=== PATIENT | male | born 1975 | race Caucasian/White ===

== ENCOUNTER 2018-04-03 09:41 | Emergency (ER) | payer SELFPAY ==
[~2018-04-03] VITALS: Ht 160 cm; Wt 53.3 kg
[2018-04-03 09:44] VITALS: Ht 160 cm; Wt 53.3 kg
--- NOTE | 2018-04-03 10:42 | DIAGNOSTIC IMAGING REPORT ---
AP PELVIS ONE VIEW, LEFT HIP 2 VIEWS HISTORY: Left hip pain COMPARISON: None. FINDINGS: There is no fracture or dislocation. Soft tissues are unremarkable. Cartilage spaces are maintained for age. IMPRESSION: No significant abnormality within the pelvis or hips. Electronically signed by: David Pizano M.D. 04/03/2018 10:40 AM Dictated Date/Time: 04/03/2018 10:39 AM
[2018-04-03] MEDS ORDERED: HYDR-5688 PO (11:05)
[2018-04-03 11:14] VITALS: BP 119/88; PULSE 98; TEMP 36.7; O2SAT 99
--- NOTE | 2018-04-03 17:06 | EMERGENCY ROOM VISIT NOTE ---
History First contact with patient: 09:53 Chief Complaint: HIP PAIN Stated Complaint: LEFT HIP PAIN History of Present Illness The patient is a 42 year old white male who presents to the Emergency Room with complaints of left hip pain that developed . He denies any specific injury or trauma. 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 He was going up and down a ladder frequently. He awoke morning with left hip pain. Pain is persisted. He points to the proximal hip flexor tendon and his buttock as the 2 areas of discomfort. Pain is worse when sitting in certain positions and when standing. He does have some difficulty with walking. No numbness or tingling. It does not radiate. No prior history of similar discomfort. No fever or chills. No loss of bowel or bladder control. No knee pain. No treatment yet. No other complaints. Review of Systems REVIEW OF SYSTEM: HEENT: No dizziness, visual problems, hearing loss, or tinnitus. There is no difficulty swallowing and no oral lesions are present. PULMONARY: No cough, shortness of breath, sputum production or hemoptysis. CARDIOVASCULAR: No chest pain, palpitations, shortness of breath or peripheral edema. GASTROINTESTINAL: No diarrhea, constipation, nausea, vomiting, or abdominal pain. GENITOURINARY: No dysuria, frequency, urgency or nocturia. NEUROLOGIC: No weakness, muscle tenderness, epilepsy or history of neurological problems. MUSCULOSKELETAL: No history of joint tenderness/swelling. No history of arthritis or arthralgias. SKIN: No rashes or lesions. PSYCHIATRIC: No history of depression or mental illness. ENDOCRINE: No history of diabetes, thyroid disorders, or abnormal hair growth. Past Medical/Surgical History Previous surgeries: None. Medical history: Unremarkable Family History Significant for liver disease and osteoarthritis. Parents are . Social History Smoking Status: Current Every Day Smoker Alcohol Use: none Drug Use: none Marital Status: in relationship Housing Status: lives with significant other Occupation Status: employed Current/Historical Medications Scheduled PRN Hydrocodone/Acetaminophen 5MG/325MG ([place] 5MG/325MG), 1 TABLET PO Q6H PRN for Pain Physical Exam Vital Signs Date Time Temp Pulse Resp B/P (MAP) Pulse Ox O2 Delivery O2 Flow Rate FiO2 04/03/18 11:14 36.7 98 20 119/88 99 04/03/18 11:13 98 20 119/88 99 Room Air 04/03/18 09:44 36.7 98 20 134/86 99 Room Air Physical Exam General: Well-developed, well-nourished, middle-aged white male, in no acute distress. Obvious discomfort. Sitting on the bed. Alert and oriented. Skin: Warm and dry with good turgor. No rashes or lesions. No ecchymosis or erythema. The patient is not diaphoretic. No abrasions. Musculoskeletal: Left hip evaluation reveals no obvious asymmetry or deformity. He has focal pain with palpation over his proximal quadricep, and hip flexor tendon. No palpable defect. Pain increases with active hip flexion. No proximal pain with resisted adduction or abduction. No pain until full terminal extension with knee flexion and extension. Knee exam itself is benign. He is able to stand but this changes the pain into his buttock. He has minimal pain anteriorly with standing, unless he attempts to flex the hip. Pain is across the gluteal attachment at his iliac crest. No pain with palpation over the lumbar spine, sacrum, SI joints, ischial tuberosity, or main muscle belly of the gluteus. No pain with palpation over his greater trochanter , IT band, or left paraspinal musculature. Neurologic: Gross sensation is intact across the left leg by soft touch. Peripheral pulses are 2+. Medical Decision & Procedures ER Provider Diagnostic Interpretation: Radiographic imaging obtained today of the left hip was reviewed by me and read by radiology. No abnormality is noted. No arthritic change. ED Course Patient was educated regarding today's findings. Conservative care measures were discussed. He was evaluated in A4. Radiographic imaging was obtained. No abnormalities were noted. This was discussed at length with him. He may have overworked his common hip flexor tendon while extending on the ladder. He was instructed to use an oral anti-inflammatory such as Aleve 2 tablets twice a day with food. Ice to the area intermittently 3 days, then use moist heat. Gentle stretching daily. Avoid heavy lifting, deep squats, or repetitive ladder use over the next several days. Follow-up with his PCP as needed or return to the ED for any acute worsening of symptoms. Add Tylenol every 6 hours as needed for mild discomfort. Prescription was provided for [place] 5 mg to be used every 6 hours as needed for severe pain. Driving precautions were given. Medical Decision Possibility of AVN, degenerative joint disease, hip flexor tendinitis, lumbar radiculopathy, SI joint dysfunction, gluteal strain, trochanteric bursitis, IT band syndrome, and septic arthritis were considered among others Medication Reconcilliation Current Medication List: was personally reviewed by me Blood Pressure Screening Patient's blood pressure: Normal blood pressure Impression Primary Impression: Tendinitis of left hip flexor Additional Impression: Hip pain, left Departure Information Dispostion Home / Self-Care Condition GOOD Prescriptions Hydrocodone/Acetaminophen 5MG/325MG ([place] 5MG/325MG) Tab 1 TABLET PO Q6H Y for Pain, #12 TAB For Initial Treatment Prov: Joshua Fontenot,P.A. 04/03/18 Forms WORK / SCHOOL INSTRUCTIONS, HOME CARE DOCUMENTATION FORM, SPECIAL NARCOTICS INSTRUCTIONS, TYLENOL USE, IMPORTANT VISIT INFORMATION Patient Instructions [facility] [employer] Additional Instructions Ice to the area intermittently 3 days, then use moist heat Gentle stretching daily Aleve 2 tablets twice a day with food 7 days Tylenol 650 mg every 6 hours as needed for mild pain Avoid any heavy lifting/deep squatting 7 days Follow-up with your PCP for a physical therapy referral if symptoms are not improving over the next 5-7 days Return to the ED for any acute changes Substitute [place] 1 tablet every 6 hours as needed for more severe pain-no driving Problem Qualifiers
== END 2018-04-03 11:14 | disposition home or self-care (01) ==
LOC: C.EDB 09:42 → C.EDA 11:14
DX: M76.12 Psoas tendinitis, left hip (principal); F17.200 Nicotine dependence, unspecified, uncomplicated